=== PATIENT | male | born 1955 | race Hispanic/Latino ===

== ENCOUNTER 2019-02-09 11:39 | Observation (INO) | payer MEDICARE, BC ==
[2019-02-09 12:40] LABS: #Basophils 0.1 thou/uL (0.0-0.2); #Eosinphils 0.1 thou/uL (0.0-0.7); #Lymphocytes 1.7 thou/uL (1.20-3.40); #Monocytes 0.7 thou/uL (0.11-0.59); #Neutrophils 16.2 thou/uL (1.40-6.50); %Basophils 0.3 % (0.0-1.0); %Eosinophils 0.5 % (0.0-10.0); %Lymphocytes 9.2 % (21.0-51.0); %Monocytes 3.7 % (0.0-10.0); %Neutrophils 86.3 % (42.0-75.0); Hemoglobin 14.8 g/dL (14.0-18.0); Mean Corpuscular HGB CONC 34.6 g/dL (32.0-36.0); Mean Corpuscular Hemoglobin 31.3 pg (27.0-31.0); Mean Corpuscular Volume 90.6 fL (78.0-98.0); Mean Platelet Volume 10.1 fL (7.4-10.4); Platelet Count 175 thou/uL (130-400); RBC Distribution Width 11.5 % (11.5-14.5); Red Blood Cell (RBC) Count 4.72 mill/uL (4.70-6.10); White Blood Cell (WBC) Count 18.8 thou/uL (4.8-10.8)
[2019-02-09] MEDS ORDERED: Acetaminophen 325 MG TAB ONE (12:51)
[2019-02-09 12:59] LABS: ALT (SGPT) 14 U/L (8-55); AST (SGOT) 20 U/L (5-34); Albumin 4.4 g/dL (3.4-4.8); Alkaline Phosphatase 90 U/L (40-150); Anion Gap 12 mmol/L (10-20); BUN (Urea Nitrogen) 16 mg/dL (8.4-25.7); Bilirubin, Total 0.4 mg/dL (0.2-1.2); Calc. Creatinine Clearance 0 mL/min (70-130); Calcium 9.3 mg/dL (7.8-10.44); Carbon Dioxide 24 mmol/L (23-31); Chloride 104 mmol/L (98-107); Estimated GFR-MDRD 72; Globulin 2.6 g/dL (2.4-3.5); Glucose 100 mg/dL (80-115); Potassium 3.8 mmol/L (3.5-5.1); Sodium 136 mmol/L (136-145)
--- NOTE | 2019-02-09 13:51 | CT ---
CT BRAIN WITHOUT CONTRAST: HISTORY: Syncope. FINDINGS: Comparison is made with the exam of 01/18/2013. No evidence of acute infarct, hemorrhage, midline shift, or abnormal extraaxial fluid collections is seen. The ventricular size is normal and the basilar cisterns are patent. The bony calvarium is int act. The visualized paranasal sinuses and mastoid air cells are well aerated. IMPRESSION: No CT evidence of acute intracranial process. POS: [facility]
--- NOTE | 2019-02-09 14:20 | RAD ---
AP view of the pelvis INDICATION: Fall with left hip pain COMPARISON: None. FINDINGS: Bones: There is a subcapital left femoral neck fracture with mild varus malalignment. There is mild m edial displacement of the femoral head fracture component. There is diffuse osteopenia. Hips: There is mild osteoarthrosis of the left and right hip SI joints and symphysis pubis: Normal appearing. Intrapelvic contents: Within normal limits. IMPRESSION: Left subcapital femoral neck fracture with mild displacement
[2019-02-09 14:36] LABS: Bilirubin Negative (Negative); Blood, Urine Negative (Negative); Clarity Clear (Clear); Glucose, Urine (Dipstick) Normal (Negative); Leukocyte Negative Leu/uL (Negative); Nitrite Negative (Negative); Protein, Urine (Dipstick) Negative (Neg-Trace); Urobilinogen Normal mg/dL (Less than 2)
[2019-02-09] MEDS ORDERED: diphenhydrAMINE 50 MG/ML VIAL ONE (14:43)
[2019-02-09] MEDS ORDERED: Metoclopramide HCl 10 MG/2 ML VIAL ONE (14:43)
[2019-02-09 16:45] VITALS: BMI 27.1
[2019-02-09] MEDS ORDERED: Lorazepam 2 MG/ML VIAL SLOW IVP PRN (17:51)
[2019-02-09 18:12] LABS: Lactic Acid 2.5 mmol/L (0.5-2.2)
[2019-02-09] MEDS: Sodium Chloride 0.9% 1,000 ML IV SCH (18:25)
[2019-02-09 18:44] LABS: Amphetamine Not Detected (NotDetected); Barbiturates Screen Not Detected (NotDetected); Benzodiazepine Screen Not Detected (NotDetected); Cocaine Metabolite Screen Not Detected (NotDetected); Medtox Reader # READER 4; Methadone Not Detected (NotDetected); Methamphetamine Not Detected (NotDetected); Opiate Screen Not Detected (NotDetected); Phencyclidine (PCP) Not Detected (NotDetected); THC/Cannabinoid Screen Not Detected (NotDetected); Tricyclic Screen Not Detected (NotDetected)
[2019-02-09 18:45] LABS: Medtox Control Line Valid? VALID (VALID); Oxycodone Screen Not Detected (NotDetected)
--- NOTE | 2019-02-09 19:05 | ULT ---
EXAM: Bilateral lower extremity venous Doppler evaluation PROVIDED CLINICAL HISTORY: Bilateral lower calf tenderness after a long car ride TECHNIQUE: Grayscale, color doppler and spectral doppler images were obtained of the common femoral , femoral, profunda femoral, popliteal and posterior tibial veins of both lower extremities. FINDINGS: There is normal compression, flow and augmentation seen with the deep venous structures within both l ower extremities. IMPRESSION: No sonographic evidence for lower extremity deep venous thrombosis.
--- NOTE | 2019-02-09 19:06 | RAD ---
XR Hip Lt 2-3 View INDICATION: Left hip pain after seizure COMPARISON: None FINDINGS: Bones: No acute osseous abnormality. Bone mineralization appears within normal limits. Hip joint: Radiographically normal. SI joints and symphysis pubis: Radiographically normal. Intrapelvic contents: Visualized bowel gas pattern is within normal limits. Surrounding soft tissues: Radiographically normal. IMPRESSION: 1. No acute osseous abnormality.
--- NOTE | 2019-02-09 19:08 | ULT ---
Carotid duplex sonogram HISTORY: Vascular disease. TIA. FINDINGS: Right: Mild intimal thickening. Color and spectral Doppler evaluation, peak systolic velocity of 63 c m/s, and IC to CC ratio 0.8 suggest no hemodynamically significant stenosis within the extracranial right ICA. Antegrade flow within the vertebral artery. Left: Mild intimal thickening. Color and spectral Doppler evaluation, peak systolic velocity of 65 cm /s, and IC to CC ratio 0.8 suggest no hemodynamically significant stenosis within the extracranial left ICA. Antegrade flow within the vertebral artery. IMPRESSION: No sonographic evidence of significant extracranial ICA stenosis.
--- NOTE | 2019-02-09 19:57 | HP ---
PRIMARY CARE PHYSICIAN: Dr. Karlee Panda. CHIEF COMPLAINT: Collapse. HISTORY OF PRESENT ILLNESS: Mr. Davis is a 64-year-old gentleman with a history of a seizure x1 in 2012 associated with withdrawal from clonazepam, therefore, taken off the medication. Also with a past medical history of a previous stroke to the brainstem, who presents after having a syncopal episode and presumed seizure. The patient states for the last 3 days, he has been feeling generally unwell. States he has felt more fatigued than usual. He has been experiencing discomfort in the bilateral calves, which have been sore and tender to touch without any obvious swelling and denies any edema or erythema associated with it. He has been on long car ride at [place], but typically is very active and denies being sedentary at home. He usually takes 2 to 3 walks a day. For the last 3 days, he has been having increased discomfort in the calves. However, he has continued to take his usual walks. This morning, the patient intended to go on a walk and he got outside by his truck when he suddenly felt unwell and decided to come back inside his home. He has no recollection of events following that. He reports feeling slightly lightheaded in the morning. Denies any associated chest pain or shortness of breath. No dizziness/spinning sensation. His states she was aware when he went outside to go for a walk and states that shortly after he came back inside and sat on the couch. She states he appeared disoriented and had a wound to the bridge of his nose. When she asked him what happened, he stated he did not know, but he noticed he lost control of his bladder. She states he could not have been outside for too long. The patient does not recall on how long he had lost consciousness for. Following this episode, she states he was slightly disoriented, but his speech was normal and he did not have any complaints except for mild headache on the back of his head from the fall. The patient denies having any nausea or vomiting. He was not drowsy. EMS was called and he was brought to the emergency department for further evaluation. He had an EKG done, which showed normal sinus rhythm with a heart rate of 90. No ST changes or T-wave abnormalities present. A CT of the head was done showing no acute intracranial abnormalities. He was given IV fluids with 1 L of normal saline. For his headache, he was treated with Reglan, Benadryl, and Tylenol. He was also given aspirin as a possibility of recurrent TIA was suspected. The laboratory studies that were done in the emergency department showed a white count of 18.8 with normal hemoglobin and platelet count of 175. His electrolytes and renal function were within normal range. Troponin was done and negative. A prolactin level was also checked and was normal at 5.76. He had a UA done, which was unremarkable. He also underwent a chest x-ray, which was also unremarkable. REVIEW OF SYSTEMS: The patient denies having any recent fevers, chills, or sweats. Has not had any changes with his appetite or weight. No chest pain, palpitations, or shortness of breath. He does feel lightheaded on occasion when he stands, but has felt this way for the last 3 days. He states he has felt "not right." The main complaint, however, has been discomfort in the bilateral calves. He describes a tingling sensation in the left calf today, which he states feels as if his leg had fallen asleep. He denies any weakness in any of his extremities. He reports pain in the left hip, which has been chronic, but today he found it more difficult to walk long distances without increased pain in his left hip. He denies any changes with his bowels. No urinary symptoms. The patient did state he has had difficulty sleeping for the last 3 nights where typically his sleep aids and pain medications helped him asleep. He has been unable to get comfortable, reporting discomfort in the bilateral calves, and feeling overall restless. All other review of systems are negative. PAST MEDICAL HISTORY: 1. Previous brainstem CVA in 2011. 2. Seizure x1 in 2013 associated with clonazepam withdrawal. 3. High cholesterol. 4. Degenerative lumbar disease. 5. Depression. PAST SURGICAL HISTORY: 1. TURP procedure. 2. Appendectomy. 3. Tonsillectomy. 4. Double hernia repair. 5. Bilateral knee arthroscopy. 6. Heart catheterization x1. No stents. SOCIAL HISTORY: The patient smokes tobacco occasionally. He denies any alcohol abuse. He states he has drunk heavily in the past, but quit several years ago. He only drinks alcohol during special occasions now. Denies any illicit drug use. ALLERGIES: NO KNOWN DRUG ALLERGIES. CURRENT MEDICATIONS: 1. Diphenhydramine. 2. Atorvastatin. 3. Aspirin. 4. Ranitidine. 5. Methocarbamol. 6. Naproxen. 7. Tramadol. PHYSICAL EXAMINATION: GENERAL: The patient appears well developed, well nourished, in no acute distress. VITAL SIGNS: Temperature 97.8, pulse 68, respirations 16, O2 saturation 96% on room air, blood pressure 119/75. HEENT: The patient with an abrasion and mild bruising to the bridge of his nose. NECK: Supple. Mild discomfort with palpation of the posterior neck, but full range of motion without significant pain. No cervical spine tenderness. LUNGS: Clear to auscultation bilaterally. CARDIAC: Regular rate and rhythm. ABDOMEN: Soft, nontender, nondistended. Normoactive bowel sounds present. EXTREMITIES: Tenderness to the bilateral calves. Altered sensation to the left lower extremity. Increased discomfort in the bilateral calves with plantarflexion and extension whether passive or against resistance. Able to straight leg raise bilaterally. No lower leg edema or swelling or erythema. NEUROLOGIC: Alert and oriented x3. Speech normal. Extraocular movements intact. Facial movements normal. Facial sensation intact. Power 5/5 in upper extremities, equal bilaterally. There is reduced sensation to the left lateral and posterior calf, otherwise unremarkable neurologic examination. INVESTIGATIONS: As mentioned above in HPI. IMPRESSION AND PLAN: Mr. Davis is a very pleasant 64-year-old gentleman, who has been referred following a collapse episode with suspected seizure versus transient ischemic attack/cerebrovascular accident for further workup and management. 1. Syncope. According to him and his , he did collapse, but was not unconscious for an extended period of time. He was able to get up and walk inside and though there was mention of loss of bladder control, it does not appear he was postictal despite being slightly disoriented. His speech was normal and he was alert. Not drowsy. Laboratory studies notable for normal prolactin. He did bite his tongue. However, this may have been trauma from the fall as he did hit his face causing an abrasion to the bridge of his nose from his glasses. He has pain in the left hip and bilateral calves. However, these were present prior to this episode. He will remain on seizure precautions and Ativan p.r.n. ordered in the event he does experience a seizure. We will, however, obtain a transient ischemic attack/cerebrovascular accident workup including an echo, MRI of the brain, and carotid Dopplers. Lipid panel will be checked with his a.m. labs. Consultation to Neurology placed. We will check orthostatic blood pressures as well as D-dimer and will require continuous telemetry monitoring. We will add urine drug screen. 2. Leukocytosis. Urinalysis negative. Chest x-ray has been done and unremarkable. The patient states he has felt generally unwell for the last 3 days. We will add on lactic acid and procalcitonin. Monitor white blood count. 3. Bilateral lower extremity pain. Has calf tenderness x3 days. We will check venous Dopplers. If negative, we will resume mechanical SCDs. We will also add CK and magnesium to labs done today. 4. Coronary artery disease. We will resume home medications. 5. Gastrointestinal prophylaxis. We will resume ranitidine. 6. Left hip pain. Had increased trouble walking today due to worsening pain since the fall, though has had chronic discomfort in the left hip. We will check a hip x-ray given trauma. 7. Code status, full. His surrogate decision maker is his , Hilary Davis. 8. The patient's case to be discussed with Dr. López for further recommendations. Job ID: [id number]
[2019-02-09] MEDS: Gabapentin 300 MG CAP PO SCH (20:17)
[2019-02-09] MEDS: diphenhydrAMINE 25 MG CAP PO SCH (20:17)
[2019-02-09] MEDS: traMADol HCl 50 MG TAB PO PRN (20:18)
[2019-02-10 06:20] LABS: Cardiac Risk 4.3 (Less than 4.5)
--- NOTE | 2019-02-10 09:04 | CT ---
Exam: Left hip CT scan without IV contrast: HISTORY: Injury left hip following a seizure with left hip pain COMPARISON: Left hip plain film, 02/09/2019 FINDINGS: No evidence for left hip or femur fracture. The left pelvis appears intact. IMPRESSION: Unremarkable left hip and femur and pelvis CT scan. No fracture or dislocation. If patient cannot ambulate at pre trauma level, or pain does not resolve, consider nonemergent follow -up left hip MRI.
[2019-02-10] MEDS: Gabapentin 300 MG CAP PO SCH ×3 (09:30→21:16)
[2019-02-10] MEDS: FLUoxetine HCl 20 MG CAP PO SCH (09:30)
[2019-02-10] MEDS: Sodium Chloride 0.9% 1,000 ML IV SCH (09:31)
[2019-02-10] MEDS: traMADol HCl 50 MG TAB PO PRN ×3 (09:31→21:11)
[2019-02-10] MEDS: Aspirin 325 MG TAB PO SCH (09:31)
--- NOTE | 2019-02-10 09:47 | MRI ---
MRI BRAIN WITH AND WITHOUT CONTRAST: INDICATIONS: Seizure. TIA/CVA. COMPARISON: Reference made to head CT from 02/09/2019. FINDINGS: No ventriculomegaly, mass effect, midline shift, or acute territorial infarction. There is no pathol ogic intraaxial enhancement. Imaged skull base flow voids are patent. There is minimal chronic micr ovascular ischemic disease. Mucosal thickening of the paranasal sinuses is present. IMPRESSION: No acute intracranial abnormalities. POS: [facility]
[2019-02-10] MEDS: Atorvastatin Calcium 40 MG TAB PO SCH ×2 (10:17→13:37)
--- NOTE | 2019-02-10 11:55 | PDOC.HOSPP ---
- Subjective Encounter Date: 02/10/19 Encounter Time: 07:30 Subjective: no sob or chest pain or palp is moving all extremities no seizure like episode on floor so far [facility] Had 1 episode of clonezepam withdrawal seizure 4 yrs back - Objective Vital Signs & Weight: Vital Signs (12 hours) Temp Pulse Resp BP BP Pulse Ox 02/10/19 07:52 98.4 F 60 14 144/82 H 95 02/10/19 04:00 98.1 F 61 16 112/63 94 L 02/10/19 00:00 98.2 F 64 16 112/66 95 Weight Weight 158 lb 5 oz I&O: 02/09/19 02/10/19 02/11/19 06:59 06:59 06:59 Intake Total 1330 Balance 1330 Result Diagrams: 02/09/19 12:26 02/09/19 12:26 Hospitalist ROS - Medication Medications: Active Medications Generic Name Dose Route Start Last Admin Trade Name Freq PRN Reason Stop Dose Admin Aspirin 325 mg 02/10/19 09:00 02/10/19 09:31 Aspirin PO 325 mg DAILY RULA Administration Atorvastatin Calcium 40 mg 02/10/19 09:00 02/10/19 10:17 Lipitor PO Not Given DAILY RULA Diphenhydramine HCl 25 mg 02/09/19 21:00 02/09/19 20:17 Benadryl PO 25 mg HS RULA Administration Fluoxetine HCl 40 mg 02/10/19 09:00 02/10/19 09:30 Prozac PO 40 mg DAILY RULA Administration Gabapentin 600 mg 02/09/19 21:00 02/10/19 09:30 Neurontin PO 600 mg TID RULA Administration Sodium Chloride 1,000 mls @ 65 mls/hr 02/09/19 18:00 02/10/19 09:31 Normal Saline 0.9% IV 1,000 mls .[id number] RULA Administration Tramadol HCl 50 mg 02/09/19 17:49 02/10/19 09:31 Ultram PO 50 mg Q6H PRN Administration Pain - Exam General Appearance: NAD, awake alert Eye: PERRL, anicteric sclera ENT: no oropharyngeal lesions, moist mucosa Neck: supple, no JVD Heart: RRR, no murmur Respiratory: no wheezes, no rales Gastrointestinal: soft, non-tender, normal bowel sounds Extremities: no cyanosis, no edema Neurological: CN's grossly intact, no focal deficits Psychiatric: normal affect, A&O x 3 Hosp A/P (1) Syncope Code(s): R55 - SYNCOPE AND COLLAPSE Status: Acute (2) H/O: CVA (cerebrovascular accident) Code(s): Z86.73 - PRSNL HX OF TIA (TIA), AND CEREB INFRC W/O RESID DEFICITS Status: Chronic (3) Dehydration, moderate Code(s): E86.0 - DEHYDRATION Status: Acute (4) Dyslipidemia Code(s): E78.5 - HYPERLIPIDEMIA, UNSPECIFIED Status: Chronic (5) Depression Code(s): F32.9 - MAJOR DEPRESSIVE DISORDER, SINGLE EPISODE, UNSPECIFIED Status : Chronic Qualifiers: Depression Type: major depressive disorder Active/Remission status: in full remission - Plan CT shows no evidence of left hip fracture, d/w [facility] ortho MRI no ac cva, await echo results will get stress test, cardio consult continue asp, lipitor, gentle iv hydration, neurontin peripheral pulses are felt, will need outpt w/u for b/l leg pain from knee down
[2019-02-10 14:27] LABS: Troponin I Less than 0.010 ng/mL (< 0.028)
[2019-02-10] MEDS: diphenhydrAMINE 25 MG CAP PO SCH (21:11)
[2019-02-10] MEDS ORDERED: Melatonin 3 MG TAB PO PRN (21:45)
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
[2019-02-11] MEDS: Sodium Chloride 0.9% 1,000 ML IV SCH (00:36)
--- NOTE | 2019-02-11 00:50 | CON ---
DATE OF CONSULTATION: 02/10/2019 INDICATION FOR CONSULTATION: This is a 64-year-old patient with either a syncopal episode or a seizure yesterday and was admitted to the hospital. We were asked to see him due to the syncopal episode. HISTORY OF PRESENT ILLNESS: This is a 64-year-old gentleman, who had the syncopal episode yesterday, possibly had a seizure. He had been at home. He said he had been feeling quite well or quite right for the last couple of days. He went outside to get the dog some water and then the last thing he remembers he was back in the house sitting in his recliner. He is uncertain as to how he got into the house and was somewhat confused after he arrived in the house. Also, he had a urinary incontinence and it was noted that he did apparently have abrasions and lacerations on bridge of his nose and in the front part of in the right cheek. His also said that he had a lot of grass and leaves on his back. It is uncertain as to whether or not the patient had a seizure and was thrashing around or whether or not he had fallen forward and then trying to get up, had some seizures, but he did say what he had yesterday was quite similar to some of the feelings that he had prior to having a seizure several years ago, which was felt to be due to withdrawal from a medication, clonazepam I believe. He has had no previous cardiac history that we are aware of. He has had no palpitations. No chest pain. He had an echocardiogram today which shows a normal ejection fraction without any significant abnormalities. He has had no arrhythmias since being here. He has had no evidence of ASD or patent foramen ovale on echocardiogram and otherwise appeared to be relatively normal echocardiogram. He did state that he did not have any chest pain. He has not had any significant shortness of breath. His EKG showed a normal sinus rhythm without any significant abnormalities. He had a CT of the brain or MRI of the brain, did not show any significant abnormalities. I do not think he had any significant abnormalities noted either on the CT of the lower extremities where he has had some discomfort where he fell. There were no significant abnormalities noted there. A neurology consult had been requested originally by then, believe was canceled, but in my opinion that we may need to reinstate that neurological consult since he may certainly have a seizure disorder and consideration to starting antiseizure medications may be needed. I also discussed with him about an implantation of an implantable loop recorder that would watch him to see whether or not he had any bradycardia or arrhythmias that may have caused this issue. Certainly, we will await the results of the stress test to see whether or not there is any ischemia that may have caused some nonsustained or sustained ventricular tachycardia or a ventricular fibrillation that may have caused a syncopal episode. He has also had a carotid Doppler study performed and this also showed no evidence of significant carotid artery stenosis. His workup thus far has been unremarkable. PAST MEDICAL HISTORY: Please refer to the notes dictated by my nurse practitioner. SOCIAL HISTORY: Please refer to the notes dictated by my nurse practitioner. FAMILY HISTORY: Please refer to the notes dictated by my nurse practitioner. REVIEW OF SYSTEMS: Please refer to the notes dictated by my nurse practitioner. MEDICATIONS: Please refer to the notes dictated by my nurse practitioner. ALLERGIES: PLEASE REFER TO THE NOTES DICTATED BY MY NURSE PRACTITIONER. LABORATORY DATA: Please refer to the notes dictated by my nurse practitioner. PHYSICAL EXAMINATION: GENERAL: Reveals a well-developed, well-nourished gentleman, who is in no acute distress at this time. He does have abrasions on the front of his bridge of his nose and also on the right cheek area after he had suffered a fall. Otherwise, there were no significant abnormalities noted. VITAL SIGNS: His blood pressure is 127/75. He is afebrile. Respiratory rate is 16, heart rate was 75 and regular. HEENT: Shows the head to be otherwise normocephalic. CHEST: Clear to auscultation without rales, rhonchi, or wheezing. CARDIOVASCULAR: Reveals a regular rate and rhythm. Normal S1, S2. There are no S3, S4. There were no significant murmurs, heaves, thrills, bruits, or rubs. ABDOMEN: Soft, flat, nontender. Positive bowel sounds are present. EXTREMITIES: Showed no clubbing, cyanosis, or edema. NEUROLOGIC: The patient appears to be intact at this time. IMPRESSION: Syncopal episode versus seizure. Unclear as to what the patient had experienced. I did suggest to him about implantation of a loop recorder. He is not agreeable at this time, but we will think about it. I did explain to him that since he had the seizure or the syncopal episode that he is not a candidate to drive at this time and I suggest that he do not drive until this is sorted out. We tried to resolve the problem either by starting antiseizure medications or implanting a loop recorder to see if there are any significant arrhythmias at this time. Should he be found to have significant bradycardia or pauses that would indicate an etiology for the syncopal episode, then certainly he will need to undergo pacemaker insertion. If his stress test is abnormal, further evaluation also will need to be undertaken. His ejection fraction is normal. I do not see indication that he does not have any evidence of cardiomyopathy. We will be more than happy to continue to follow the patient with you, but at this time from a cardiac standpoint, he appears to be stable, and we will continue to monitor him on telemetry and will await hopefully a neurological evaluation. Job ID: [id number]
[2019-02-11] MEDS ORDERED: Ezetimibe 10 MG TAB PO SCH (09:00)
[2019-02-11] MEDS ORDERED: levETIRAcetam 500 MG TAB PO SCH ×2 (09:04→21:00)
[2019-02-11] MEDS: FLUoxetine HCl 20 MG CAP PO SCH (10:38)
[2019-02-11] MEDS: Gabapentin 300 MG CAP PO SCH ×2 (10:38→14:35)
[2019-02-11] MEDS: Aspirin 325 MG TAB PO SCH (10:38)
[2019-02-11] MEDS: Atorvastatin Calcium 40 MG TAB PO SCH (10:38)
[2019-02-11] MEDS: traMADol HCl 50 MG TAB PO PRN (10:38)
--- NOTE | 2019-02-11 11:15 | NM ---
EXAM: CARDIAC SPECT HISTORY: Syncope. CVA. Dyslipidemia TECHNIQUE: A myocardial perfusion scan was performed using the single isotope 2 day protocol with dorian hnetium 99m sestamibi. [30 mCi] was injected intravenously for the rest exam followed by 30 mCifor the stress study. Pharmacologic stress with Lexiscan was monitored and interpreted by Boone Iglesias, nurse practitioner FINDINGS: Homogeneous tracer distribution is seen in the myocardial segments on stress and rest image s without fixed or reversible defects. Gated SPECT LVEF: 66% Wall motion exam: Normal IMPRESSION: Normal myocardial perfusion scan
--- NOTE | 2019-02-11 12:20 | PDOC.HOSPP ---
- Subjective Encounter Date: 02/11/19 Encounter Time: 07:15 Subjective: is amb in room, no weakness or passing out after hospitalization no chest pain or palp - Objective Vital Signs & Weight: Vital Signs (12 hours) Temp Pulse Resp BP BP Pulse Ox 02/11/19 12:00 97.4 F L 81 16 129/75 100 02/11/19 08:00 98.7 F 58 L 16 137/70 94 L 02/11/19 04:00 98.3 F 73 16 136/77 96 Weight Weight 158 lb 5 oz I&O: 02/10/19 02/11/19 02/12/19 06:59 06:59 06:59 Intake Total 1330 3523 Balance 1330 3523 Result Diagrams: 02/09/19 12:26 02/09/19 12:26 Hospitalist ROS - Medication Medications: Active Medications Generic Name Dose Route Start Last Admin Trade Name Freq PRN Reason Stop Dose Admin Aspirin 325 mg 02/10/19 09:00 02/11/19 10:38 Aspirin PO 325 mg DAILY RULA Administration Atorvastatin Calcium 40 mg 02/10/19 09:00 02/11/19 10:38 Lipitor PO 40 mg DAILY RULA Administration Diphenhydramine HCl 25 mg 02/09/19 21:00 02/10/19 21:11 Benadryl PO 25 mg HS RULA Administration Ezetimibe 10 mg 02/11/19 09:00 02/11/19 10:38 Zetia PO 10 mg DAILY RULA Administration Fluoxetine HCl 40 mg 02/10/19 09:00 02/11/19 10:38 Prozac PO 40 mg DAILY RULA Administration Gabapentin 600 mg 02/09/19 21:00 02/11/19 10:38 Neurontin PO 600 mg TID RULA Administration Sodium Chloride 1,000 mls @ 65 mls/hr 02/09/19 18:00 02/11/19 00:36 Normal Saline 0.9% IV 1,000 mls .[id number] RULA Administration Melatonin 3 mg 02/10/19 21:45 02/10/19 22:09 Melatonin PO 3 mg HS PRN Administration Insomnia Tramadol HCl 50 mg 02/09/19 17:49 02/11/19 10:38 Ultram PO 50 mg Q6H PRN Administration Pain - Exam General Appearance: NAD, awake alert Eye: PERRL, anicteric sclera ENT: moist mucosa ENT - other findings: has tongue laceration over right lat aspect Neck: supple, no JVD Heart: RRR, no murmur Respiratory: no wheezes, no rales Gastrointestinal: soft, non-tender, normal bowel sounds Extremities: no cyanosis, no edema Skin: normal turgor, no rashes Neurological: CN's grossly intact, no focal deficits Psychiatric: normal affect, A&O x 3 Hosp A/P (1) Syncope Code(s): R55 - SYNCOPE AND COLLAPSE Status: Acute (2) H/O: CVA (cerebrovascular accident) Code(s): Z86.73 - PRSNL HX OF TIA (TIA), AND CEREB INFRC W/O RESID DEFICITS Status: Chronic (3) Dehydration, moderate Code(s): E86.0 - DEHYDRATION Status: Resolved (4) Dyslipidemia Code(s): E78.5 - HYPERLIPIDEMIA, UNSPECIFIED Status: Chronic (5) Depression Code(s): F32.9 - MAJOR DEPRESSIVE DISORDER, SINGLE EPISODE, UNSPECIFIED Status : Chronic Qualifiers: Depression Type: major depressive disorder Active/Remission status: in full remission (6) Seizure Code(s): R56.9 - UNSPECIFIED CONVULSIONS Status: Suspected - Plan CT shows no evidence of left hip fracture MRI no ac cva, echo ef is 60%, no wall motion abn, stress test is -ve. eeg, neuro consultation, is on keppra from this am continue asp, lipitor, neurontin peripheral pulses are felt, will need outpt w/u for b/l leg pain from knee down dc plan per neurology adv pt has refused linq monitor placement, ?event monitor if he agrees
--- NOTE | 2019-02-11 12:23 | RAD ---
PORTABLE CHEST 1 VIEW: Date: 02/09/19 Time: 1342 hours HISTORY: Syncope. FINDINGS: Comparison made with exam of 11/07/16. The heart size is normal. The aorta is tortuous. The lungs are well expanded without focal areas of c onsolidation, pneumothoraces, or pleural effusions. IMPRESSION: No acute process. POS: LEE
--- NOTE | 2019-02-11 13:12 | PDOC.CPN ---
- Subjective Date: 02/11/19 Time: 13:12 Interval history: The pt seen and examined. No overnight events. No cardiac complaints. - Objective Allergies/Adverse Reactions: Allergies Allergy/AdvReac Type Severity Reaction Status Date / Time No Known Allergies Allergy Verified 02/09/19 17:02 Visit Medications: Current Medications Aspirin (Aspirin) 325 mg PO DAILY [facility] Last Admin: 02/11/19 10:38 Dose: 325 mg Atorvastatin Calcium (Lipitor) 40 mg PO DAILY [facility] Last Admin: 02/11/19 10:38 Dose: 40 mg Diphenhydramine HCl (Benadryl) 25 mg PO HS [facility] Last Admin: 02/10/19 21:11 Dose: 25 mg Ezetimibe (Zetia) 10 mg PO DAILY [facility] Last Admin: 02/11/19 10:38 Dose: 10 mg Fluoxetine HCl (Prozac) 40 mg PO DAILY [facility] Last Admin: 02/11/19 10:38 Dose: 40 mg Gabapentin (Neurontin) 600 mg PO TID [facility] Last Admin: 02/11/19 10:38 Dose: 600 mg Sodium Chloride (Normal Saline 0.9%) 1,000 mls @ 65 mls/hr IV .[id number] [facility] Last Admin: 02/11/19 00:36 Dose: 1,000 mls Levetiracetam (Keppra) 500 mg PO BID [facility] Lorazepam (Ativan) 2 mg SLOW IVP Q15MIN PRN PRN Reason: Seizures Melatonin (Melatonin) 3 mg PO HS PRN PRN Reason: Insomnia Last Admin: 02/10/19 22:09 Dose: 3 mg Sodium Chloride (Flush - Normal Saline) 10 ml IVF Q12HR RULA Sodium Chloride (Flush - Normal Saline) 10 ml IVF PRN PRN PRN Reason: Saline Flush Tramadol HCl (Ultram) 50 mg PO Q6H PRN PRN Reason: Pain Last Admin: 02/11/19 10:38 Dose: 50 mg Vital Signs & Weight: Vital Signs Temp Pulse Resp BP BP Pulse Ox 02/11/19 12:00 97.4 F L 81 16 129/75 100 02/11/19 08:00 98.7 F 58 L 16 137/70 94 L 02/11/19 04:00 98.3 F 73 16 136/77 96 Weight 158 lb 5 oz - Physical Exam General: alert & oriented x3 Neck: supple neck Cardiac: regular rate and rhythm, S1/S2 Lungs: clear to auscultation Musculoskeletal: normal range of motion - Labs Result Diagrams: 02/11/19 15:37 02/11/19 15:37 Troponin/CKMB Troponin I Less than 0.010 ng/mL (< 0.028) 02/10/19 13:52 - Telemetry Sinus rhythms and dysrhythmias: sinus rhythm - Assessment/Plan Assessment/Plan: 1. Syncope 2/2 seizure vs cardiovascular - He will have EEG today; if he is cleared by neuro, he may need to undergo LINQ placement 2. H/O: CVA (cerebrovascular accident) - 3. HLD - 4. Degenerative lumber disease 5. current smoker - smoking cessation education given to the pt. MAR reviewed * Echo on 02/10/2019 with EF 60-65%, no DARIEN or PFO, mild dilated LA, mild ERA, mild MR and mild TR Pt. seen and eval. by me. I agree with the A/P by the AMBULATORY ANALYST. Chest clear. RRR. No arrhythmias or pauses. Await EEG and Neurology eval.
[2019-02-11] MEDS ORDERED: Acetaminophen 325 MG TAB PO PRN (14:08)
[2019-02-11 15:46] LABS: #Basophils 0.1 thou/uL (0.0-0.2); #Eosinphils 0.2 thou/uL (0.0-0.7); #Monocytes 0.6 thou/uL (0.11-0.59); %Basophils 0.6 % (0.0-1.0); %Eosinophils 2.3 % (0.0-10.0); %Lymphocytes 29.9 % (21.0-51.0); %Monocytes 6.3 % (0.0-10.0); Hemoglobin 13.7 g/dL (14.0-18.0); Mean Corpuscular HGB CONC 34.8 g/dL (32.0-36.0); Mean Corpuscular Hemoglobin 32.2 pg (27.0-31.0); Mean Corpuscular Volume 92.4 fL (78.0-98.0); Mean Platelet Volume 10.1 fL (7.4-10.4); Platelet Count 165 thou/uL (130-400); RBC Distribution Width 11.5 % (11.5-14.5); Red Blood Cell (RBC) Count 4.27 mill/uL (4.70-6.10); White Blood Cell (WBC) Count 9.9 thou/uL (4.8-10.8)
[2019-02-11 16:03] LABS: Anion Gap 11 mmol/L (10-20); BUN (Urea Nitrogen) 10 mg/dL (8.4-25.7); Calc. Creatinine Clearance 83 mL/min (70-130); Carbon Dioxide 25 mmol/L (23-31); Chloride 106 mmol/L (98-107); Estimated GFR-MDRD 86; Glucose 87 mg/dL (80-115); Potassium 4.3 mmol/L (3.5-5.1); Sodium 138 mmol/L (136-145)
[2019-02-11 16:22] VITALS: BP 145/78; TEMP 98.3
[2019-02-11] MEDS ORDERED: Regadenoson 0.4 MG/5 ML SYRINGE ONE (17:06)
--- NOTE | 2019-02-11 23:46 | CON ---
DATE OF CONSULTATION: 02/11/2019 CONSULTING PHYSICIAN: Hospitalist Services. IMPRESSION: Possible seizure. PLAN: 1. Keppra 500 mg twice a day. 2. Office followup in three months. HISTORY OF PRESENT ILLNESS: Mr. Davis is a 64-year-old man who reports having a period of amnesia. He apparently woke up on the ground. He had bit his tongue. There is no other history available. He is admitted for further evaluation. His MRI of the brain was normal. Echocardiogram showed ejection fraction of 60% to 65%. His tox screen was negative. His vital signs have been stable and he has been afebrile. He has not had any further events. He reports having seizure due to withdrawing Klonopin in the past. He otherwise has no other significant problems. PAST MEDICAL HISTORY: Hyperlipidemia and reflux. ALLERGIES: NONE. SOCIAL HISTORY: No tobacco or alcohol use. FAMILY HISTORY: Noncontributory. REVIEW OF SYSTEMS: Ten-system review of systems is otherwise negative. PHYSICAL EXAMINATION: VITAL SIGNS: Blood pressure 111/66, pulse 65, respirations 16, and temperature 98.2. HEENT: Pupils equal and reactive. Conjunctivae clear. Oropharynx clear. NECK: Supple. No lymphadenopathy. EXTREMITIES: No cyanosis, clubbing, or edema. NEUROLOGIC: He is alert and appropriate. His speech is fluent and clear. Cranial nerves 2 through 12 are intact. Motor exam showed good strength bilaterally. He has no abnormal movements. His gait is steady. LABORATORY DATA: EEG has been completed and appears normal. Cardiac workup has also been negative. SUMMARY: This is a middle-age man with apparent episode of amnesia with evidence of trauma to his tongue after the event, recurrent seizure seems like reasonable possibility. I would go with Mack and followup with him. Job ID: [id number]
--- NOTE | 2019-02-12 13:03 | DIS ---
DATE OF ADMISSION: 02/09/2019 DATE OF DISCHARGE: 02/11/2019 DISCHARGE DISPOSITION: Home. PRIMARY DISCHARGE DIAGNOSIS: Syncope likely due to seizures. SECONDARY DISCHARGE DIAGNOSES: Prior history of cerebrovascular accident, moderate dehydration on arrival resolved, dyslipidemia, depression. PROCEDURES DONE DURING HOSPITALIZATION: MRI showed no acute CVA. Echo with 2D Doppler showed 60% ejection fraction with no wall motion abnormalities. Stress test was negative for any reversible ischemia. EEG was within normal limits. Left lower extremity CT scan without IV contrast showed no fracture or dislocation. Lower extremity ultrasound venous Doppler showed no evidence of DVT. Ultrasound of carotids showed no sonographic evidence for significant extracranial ICA stenosis. H and H 13 and 39, platelet count 165, white count of 9. Total cholesterol 128, triglycerides 282, LDL 42, HDL 30, BUN 10, creatinine 0.8. BNP 28. Troponin x2 negative. Urine drug screen was negative. DISCHARGE MEDICATIONS: 1. Keppra 500 mg p.o. twice daily. 2. Zetia 10 mg p.o. daily. 3. Atorvastatin 40 mg p.o. daily. 4. Aspirin 325 mg p.o. daily. 5. Fluoxetine 40 mg p.o. daily. 6. Gabapentin 600 mg p.o. three times daily. 7. Naprosyn p.r.n. 8. Ranitidine 150 mg p.o. twice daily. 9. Ultram p.r.n. for pain. ALLERGIES: NO KNOWN DRUG ALLERGIES. INPATIENT CONSULT: Dr. Latham for Cardiology and Dr. Winters for Neurology. DISCHARGE PLAN: The patient to follow up with primary care physician in [address] Winters in 4 weeks. He also needs follow up with Dr. Latham as advised. BRIEF COURSE DURING HOSPITALIZATION: The patient initially got admitted on the 3rd after he passed out and fell face down. He also had tongue laceration on clinical exam. He has had prior history of brainstem CVA in 2012. The patient has had complete neuro and cardiac workup done. No arrhythmias were noted on the telemetry. MRI did not show any acute CVA. The patient has had bilateral leg pains and also left hip pain. A lower extremity CAT scan of the left hip showed no acute fracture or dislocations. Echo showed good ejection fraction of 60% to 65%. Nuclear stress test showed no reversible ischemia. EEG done appeared normal per Neurology notes. In view of the patient's second episode of seizure, the prior one was thought to be due to clonazepam withdrawal and the current one with tongue laceration and falling face down, the patient was placed on Keppra twice daily. He has tolerated this well during brief hospitalization here. He needs follow up with Dr. Winters in 4 weeks and primary care physician in 1 week. Prior to discharge , he is ambulating and eating well. No further episodes of seizures were noted on stroke floor after hospitalization. Please see a [id number] documentation for the day of discharge on [employer]. Job ID: [id number] [facility]
--- NOTE | 2019-02-14 01:28 | EKG ---
Test Reason : Blood Pressure : / mmHG Vent. Rate : 090 BPM Atrial Rate : 090 BPM P-R Int : 132 ms QRS Dur : 082 ms QT Int : 356 ms P-R-T Axes : 028 -03 011 degrees QTc Int : 435 ms Normal sinus rhythm Normal ECG Confirmed by XAVIER GOMEZ ([id number]), features editor ROBERTO AHM ([id number]) on 02/14/2019 1:27:11 AM Referred By: Confirmed By:XAVIER GOMEZ
--- NOTE | 2019-02-19 09:56 | EEG ---
Referring Physician: FER EEG # [id number] TEST TYPE: ROUTINE PORTABLE INPATIENT REPORT: AN EEG USING THE [employer]NATIONAL TEN-TWENTY SYSTEM OF ELECTRODE PLACEMENT WAS PERFORMED. The waking background is a 8-9 hertz medium amplitude alpha frequency. The patient became drowsy, but no sleep was seen. Photic stimulation was unremarkable. No epileptiform features were present. IMPRESSION: THIS IS A NORMAL AWAKE AND DROWSY EEG. Student Counsellor: charline Promotional Representative: EEG.ENEIDA PELLETIER
== END 2019-02-11 17:34 | disposition home or self-care (01) ==
LOC: ERS 11:39 → ERHOLD 13:59 → 2SE 16:38
PROVIDERS: ADMIT Internal Medicine; ATTEND Internal Medicine
DX: R55 Syncope and collapse (principal); E86.0 Dehydration; E78.5 Hyperlipidemia, unspecified; D72.829 Elevated white blood cell count, unspecified; I25.10 Atherosclerotic heart disease of native coronary artery without angina pectoris; F17.210 Nicotine dependence, cigarettes, uncomplicated; F32.9 Major depressive disorder, single episode, unspecified; K21.9 Gastro-esophageal reflux disease without esophagitis; M47.816 Spondylosis without myelopathy or radiculopathy, lumbar region; Z79.82 Long term (current) use of aspirin; Z79.899 Other long term (current) drug therapy
CPT/HCPCS: 70450; 70553; 71045; 73502; 73700; 78452; 80048; 80053; 80061; 80306; 81003; 83605; 83735; 83880; 84145; 84146; 84443; 84484 ×2; 85025 ×2; 85379; 93005; 93017; 93306; 93880; 93970; 94760; 95816; 95819; 96361 ×2; 96365; 96375; 99285; A9500; G0378 ×4; 36415; J1200; J2765; J2785; Q0163

== ENCOUNTER 2022-09-25 19:52 | Emergency (ER) | payer MEDICARE, BC, OTHER ==
[2022-09-25] MEDS ORDERED: Acetaminophen 500 MG TAB ONE ×2 (20:02→20:20)
[2022-09-25] MEDS ORDERED: Ibuprofen 800 MG TAB ONE (20:20)
[2022-09-25 21:55] LABS: SARS-CoV-2 NAA Rapid Test Not Detected (NotDetected)
== END 2022-09-25 23:48 | disposition home or self-care (01) ==
LOC: ERS 19:52
DX: J01.90 Acute sinusitis, unspecified (principal); Z20.822 Contact with and (suspected) exposure to COVID-19; Z79.82 Long term (current) use of aspirin; Z79.899 Other long term (current) drug therapy
CPT/HCPCS: 0240U; 71045; 93005; 96360; 96361; 99284

== ENCOUNTER 2022-09-27 15:16 | Emergency (ER) | payer MEDICARE, BC ==
[~2022-09-27 15:16] MED LIST: Iopamidol-370 76% 500 ML MDV (1 ML CHARGE) ONE
[2022-09-27 16:22] LABS: #Eosinphils 0.4 thou/uL (0.0-0.7); #Lymphocytes 2.2 thou/uL (1.20-3.40); #Monocytes 0.9 thou/uL (0.11-0.59); #Neutrophils 15.2 thou/uL (1.40-6.50); %Basophils 0.1 % (0.0-1.0); %Eosinophils 1.9 % (0.0-10.0); %Lymphocytes 11.9 % (21.0-51.0); %Monocytes 4.6 % (0.0-10.0); %Neutrophils 81.5 % (42.0-75.0); Hemoglobin 13.2 g/dL (14.0-18.0); Mean Corpuscular HGB CONC 34.7 g/dL (32.0-36.0); Mean Corpuscular Hemoglobin 33.3 pg (27.0-31.0); Platelet Count 151 10x3/uL (130-400); RBC Distribution Width 12.3 % (11.5-14.5); Red Blood Cell (RBC) Count 3.95 mill/uL (4.70-6.10); White Blood Cell (WBC) Count 18.7 10x3/uL (4.8-10.8)
[2022-09-27 16:54] LABS: ALT (SGPT) 16 U/L (8-55); AST (SGOT) 25 U/L (5-34); Albumin 3.7 g/dL (3.4-4.8); Alkaline Phosphatase 89 U/L (40-110); Anion Gap 13 mmol/L (10-20); BUN (Urea Nitrogen) 14 mg/dL (8.4-25.7); Bilirubin, Total 0.2 mg/dL (0.2-1.2); Calc. Creatinine Clearance 0 mL/min (70-130); Calcium 8.8 mg/dL (7.8-10.44); Carbon Dioxide 22 mmol/L (23-31); Chloride 107 mmol/L (98-107); Estimated GFR 64; Globulin 2.9 g/dL (2.4-3.5); Glucose 100 mg/dL (80-115); Lipase 12 U/L (8-78); Potassium 3.6 mmol/L (3.5-5.1); Protein, Total 6.6 g/dL (5.8-8.1); Sodium 138 mmol/L (136-145)
[2022-09-27] MEDS ORDERED: Ondansetron PF 4 MG/2 ML Vial ONE (16:55)
[2022-09-27] MEDS ORDERED: Morphine 4 MG/ML VIAL ONE ×2 (16:55→21:37)
[2022-09-27 19:20] LABS: Bacteria/HPF None Seen HPF (None Seen); Bilirubin Negative (Negative); Blood, Urine Trace (Negative); Clarity Clear (Clear); Glucose, Urine (Dipstick) Normal (Negative); Ketone, Urine Negative (Negative); Leukocyte 500 Leu/uL (Negative); Nitrite Negative (Negative); Protein, Urine (Dipstick) 20 mg/dL (Neg-Trace); Specific Gravity, Urine 1.021 (1.002-1.036); Squamous Epithelial None Seen HPF (0-3); Urobilinogen Normal mg/dL (Less than 2); WBC/HPF Greater than 50 HPF (0-3)
[2022-09-27] MEDS ORDERED: cefTRIAXone (ROCEPHIN) 1 GM VIAL ONE (20:01)
== END 2022-09-27 21:32 | disposition home or self-care (01) ==
LOC: ERS 15:16
DX: N12 Tubulo-interstitial nephritis, not specified as acute or chronic (principal); F17.210 Nicotine dependence, cigarettes, uncomplicated; Z79.82 Long term (current) use of aspirin
CPT/HCPCS: 36415; 71045; 74177; 80053; 81003; 81015; 83690; 83880; 84484; 85025; 93005; 96361; 96365; 96375; J0696; J2270; J2405; Q9967

== ENCOUNTER 2024-03-09 14:09 | Emergency (ER) | payer MEDICARE ==
[2024-03-09 15:13] LABS: #Basophils 0.04 10x3/uL (0.0-0.2); %Basophils 0.4 % (0.0-1.0); %Lymphocytes 22.5 % (21.0-51.0); %Monocytes 5.5 % (0.0-10.0); %Neutrophils 66.8 % (42.0-75.0); Hematocrit 39.5 % (42.0-52.0); Hemoglobin 12.8 g/dL (14.0-18.0); Mean Corpuscular HGB CONC 32.4 g/dL (32.0-36.0); Mean Corpuscular Volume 95.6 fL (78.0-98.0); Mean Platelet Volume 11.9 fL (7.4-10.4); Platelet Count 185 10x3/uL (130-400); RBC Distribution Width 13.3 % (11.5-14.5); Red Blood Cell (RBC) Count 4.13 mill/uL (4.70-6.10)
[2024-03-09 15:30] LABS: ALT (SGPT) 9 U/L (8-55); AST (SGOT) 13 U/L (5-34); Albumin 3.3 g/dL (3.4-4.8); Alkaline Phosphatase 114 U/L (40-110); Anion Gap 13 mmol/L (10-20); BUN (Urea Nitrogen) 14 mg/dL (8.4-25.7); Bilirubin, Total 0.2 mg/dL (0.2-1.2); Calc. Creatinine Clearance 0 mL/min (70-130); Calcium 8.9 mg/dL (7.8-10.44); Carbon Dioxide 24 mmol/L (23-31); Chloride 108 mmol/L (98-107); Estimated GFR 93; Globulin 2.9 g/dL (2.4-3.5); Glucose 119 mg/dL (83-110); Potassium 4.1 mmol/L (3.5-5.1); Protein, Total 6.2 g/dL (5.8-8.1); Sodium 141 mmol/L (136-145)
[2024-03-09] MEDS ORDERED: Ketorolac Tromethamine 30 MG (1 mL) VIAL ONE (16:49)
[2024-03-09] MEDS ORDERED: HYDROcodone/Acetaminophen 5/325 mg Tablet ONE (16:50)
== END 2024-03-09 17:28 | disposition home or self-care (01) ==
LOC: ERS 14:09
DX: M54.41 Lumbago with sciatica, right side (principal); F17.210 Nicotine dependence, cigarettes, uncomplicated
CPT/HCPCS: 72146; 72148; 80053; 85025; J1885; 36415; 96372